=== PATIENT | female | born 1975 | race Asian ===

== ENCOUNTER 2021-11-10 17:59 | Observation (INO) | payer BC ==
[~2021-11-10] VITALS: Ht 162.6 cm; Wt 54.4 kg
[~2021-11-10 17:59] MED LIST: DEXAMETHASONE SOD PHOS INJ 4 MG/ML SDV ONE; GLYCOPYRROLATE INJ 0.2 MG/ML VIAL ONE; KETOROLAC TROMETHAMINE 30 MG/ML VIAL ONE; NEOSTIGMINE 1 MG/ML 10ML VIAL ONE; ONDANSETRON HCL INJ 2MG/ML 2ML 2 MG/ML VIAL ONE; POVIDONE IODINE 0.05% 0.05 % ML PO ONE; PROPOFOL IV EMULSION 10 MG/ML 20 ML VIAL ONE; ROCURONIUM BROMIDE 10 MG/ML 5ML VIAL IV ONE
[2021-11-10 18:55] LABS: BASOPHILS % 0.6 % (0.0-1.0); EOSINOPHILS # (AUTO) 0.2 (0.0-0.4); EOSINOPHILS % 3.8 % (0.0-6.0); HEMATOCRIT 40.3 % (34.2-44.1); HEMOGLOBIN 13.4 g/dL (12.0-16.0); LYMPHOCYTES # (AUTO) 2.2 (1.0-3.2); LYMPHOCYTES % 43.1 % (18.0-39.1); MEAN CORPUSCULAR HEMOGLOBIN 29.3 pg (28-32); MEAN CORPUSCULAR HGB CONC 33.3 g/dL (31-35); MONOCYTES # (AUTO) 0.4 (0.2-0.8); MONOCYTES % 7.1 % (4.4-11.3); NEUTROPHILS # (AUTO) 2.4 (2.1-6.9); NEUTROPHILS % 45.2 % (38.7-80.0); PLATELET COUNT 308 x10e3/uL (140-360); RED BLOOD COUNT 4.58 x10e6/uL (3.6-5.1); RED CELL DISTRIBUTION WIDTH 12.2 % (11.7-14.4)
[2021-11-10 19:11] LABS: ALANINE AMINOTRANSFERASE 20 IU/L (0-55); ALBUMIN 4.2 g/dL (3.5-5.0); ALBUMIN/GLOBULIN RATIO 1.3 (0.8-2.0); ALKALINE PHOSPHATASE 55 IU/L (40-150); ANION GAP 12.9 mmol/L (8-16); BLOOD UREA NITROGEN 11 mg/dL (7-26); BUN/CREATININE RATIO 15 (6-25); CALCIUM 9.4 mg/dL (8.4-10.2); CARBON DIOXIDE 30 mmol/L (22-29); CHLORIDE 98 mmol/L (98-107); CREATININE, SERUM 0.72 mg/dL (0.57-1.11); GLUCOSE 112 mg/dL (74-118); POTASSIUM 3.9 mmol/L (3.5-5.1); SODIUM 137 mmol/L (136-145)
[2021-11-10] MEDS: Morphine 4mg INJECTION 4 MG/ML INJ IV PRN ×2 (20:09→21:11)
[2021-11-10] MEDS: ONDANSETRON HCL INJ 2MG/ML 2ML 2 MG/ML VIAL IV PRN (20:10)
[2021-11-10] MEDS ORDERED: SODIUM CHLORIDE 0.9% 1000ML 1,000 ML IV ONE (20:45)
[2021-11-10] MEDS ORDERED: ONDANSETRON HCL INJ 2MG/ML 2ML 2 MG/ML VIAL IV PRN (22:15)
[2021-11-10] MEDS ORDERED: Morphine 4mg INJECTION 4 MG/ML INJ IV PRN (22:15)
[2021-11-10] MEDS: SODIUM CHLORIDE 0.9% 1000ML 1,000 ML IV SCH (22:26)
[2021-11-10] MEDS ORDERED: SODIUM CHLORIDE 0.9% 1000ML 1,000 ML ONE (22:33)
[2021-11-10] MEDS ORDERED: IOPAMIDOL 370 MG/ML 100 ML INFUS..BTL INJ ONE (22:51)
[2021-11-11] VITALS (11 sets, daily range): BP systolic 92–137; BP diastolic 63–89
[2021-11-11] MEDS: Morphine 4mg INJECTION 4 MG/ML INJ IV PRN ×5 (01:49→21:21)
[2021-11-11] MEDS: SODIUM CHLORIDE 0.9% 1000ML 1,000 ML IV SCH ×3 (05:46→19:31)
[2021-11-11 06:59] LABS: BASOPHILS % 0.2 % (0.0-1.0); EOSINOPHILS # (AUTO) 0.2 (0.0-0.4); EOSINOPHILS % 4.3 % (0.0-6.0); HEMATOCRIT 37.7 % (34.2-44.1); HEMOGLOBIN 11.9 g/dL (12.0-16.0); LYMPHOCYTES # (AUTO) 2.1 (1.0-3.2); LYMPHOCYTES % 46.4 % (18.0-39.1); MEAN CORPUSCULAR HEMOGLOBIN 29.5 pg (28-32); MEAN CORPUSCULAR HGB CONC 31.6 g/dL (31-35); MEAN CORPUSCULAR VOLUME 93.3 fL (81-99); MONOCYTES # (AUTO) 0.2 (0.2-0.8); MONOCYTES % 5.2 % (4.4-11.3); NEUTROPHILS # (AUTO) 1.9 (2.1-6.9); NEUTROPHILS % 43.7 % (38.7-80.0); PLATELET COUNT 243 x10e3/uL (140-360); RED BLOOD COUNT 4.04 x10e6/uL (3.6-5.1); RED CELL DISTRIBUTION WIDTH 12.1 % (11.7-14.4)
[2021-11-11 07:23] LABS: ALBUMIN 3.4 g/dL (3.5-5.0); ALBUMIN/GLOBULIN RATIO 1.3 (0.8-2.0); CALCIUM 8.4 mg/dL (8.4-10.2); CREATININE, SERUM 0.71 mg/dL (0.57-1.11)
[2021-11-11] MEDS ORDERED: METFORMIN HCL500 MG PO (07:30)
[2021-11-11] MEDS ORDERED: DEXTROSE 50% SYRINGE 50 ML IV PRN (08:15)
[2021-11-11 08:35] LABS: CHOL/HDL RATIO 5.7 (3.0-3.6)
[2021-11-11] MEDS ORDERED: DIPHENHYDRAMINE HCL 30 GM TUBE TOP PRN (09:00)
[2021-11-11] MEDS: INSULIN REGULAR, HUMAN 100 UNIT/1 ML SQ SCH ×3 (11:30→20:37)
[2021-11-11] MEDS: TRIAMCINOLONE 0.1% OINTMENT 15 GM TUBE TP SCH ×3 (13:07→20:40)
[2021-11-11] MEDS: ONDANSETRON HCL INJ 2MG/ML 2ML 2 MG/ML VIAL IV PRN ×3 (13:07→21:21)
[2021-11-11] MEDS ORDERED: BUPIVACAINE 0.25% 30ML SDV ONE (14:36)
[2021-11-11] MEDS ORDERED: HYDROMORPHONE 1MG/1ML INJ ONE (16:19)
[2021-11-11] MEDS ORDERED: MIDAZOLAM HCL 2 MG/2 ML VIAL ONE (18:14)
[2021-11-11] MEDS ORDERED: FENTANYL CITRATE/PF 100MCG/2 ML INJ ONE (18:14)
[2021-11-12] MEDS: SODIUM CHLORIDE 0.9% 1000ML 1,000 ML IV SCH ×2 (04:48→14:11)
[2021-11-12 04:53] VITALS: BP 98/65
[2021-11-12] MEDS: INSULIN REGULAR, HUMAN 100 UNIT/1 ML SQ SCH ×3 (07:30→16:28)
[2021-11-12] MEDS: ONDANSETRON HCL INJ 2MG/ML 2ML 2 MG/ML VIAL IV PRN ×2 (08:02→12:32)
[2021-11-12] MEDS: Morphine 4mg INJECTION 4 MG/ML INJ IV PRN ×2 (08:03→12:33)
[2021-11-12 08:18] VITALS: BP 105/74
[2021-11-12 08:23] VITALS: BP 105/74
[2021-11-12 10:01] VITALS: BP 105/74
[2021-11-12] MEDS: TRIAMCINOLONE 0.1% OINTMENT 15 GM TUBE TP SCH ×2 (10:10→15:00)
[2021-11-12 11:34] VITALS: BP 109/72
[2021-11-12] MEDS ORDERED: ACETAMINOPHEN/CODEINE 300MG - 30MG TAB PO PRN (13:45)
[2021-11-12 15:43] VITALS: BP 99/68
[2021-11-12] MEDS ORDERED: Tylenol#3 PO (18:30)
== END 2021-11-12 18:42 | disposition home or self-care (01) ==
LOC: ER 18:26 → ERHOLD 22:17 → MED/SURG 11-11 01:13
PROVIDERS: ADMIT Internal Medicine; ATTEND Internal Medicine
DX: K80.12 Calculus of gallbladder with acute and chronic cholecystitis without obstruction (principal); K35.80 Unspecified acute appendicitis; K59.00 Constipation, unspecified; E11.9 Type 2 diabetes mellitus without complications; L29.8 Other pruritus; Z88.8 Allergy status to other drugs, medicaments and biological substances; Z20.822 Contact with and (suspected) exposure to COVID-19; Z90.710 Acquired absence of both cervix and uterus; Z79.84 Long term (current) use of oral hypoglycemic drugs
CPT/HCPCS: 0223U; 36415 ×3; 44970; 47562; 74177; 76705; 80053 ×2; 80061; 82948 ×2; 83036; 83690 ×2; 84702; 85025 ×2; 88304; 94799 ×2; 96360; 96361; 99284; C1713; G0378 ×3; J1100; J1170; J1885; J2250; J2270 ×3; J2405 ×3; J2543 ×3; J2704; J2710; J3010; J7030 ×3; Q9967